=== PATIENT | male | born 1960 | race Caucasian/White ===

== ENCOUNTER → 2017-05-19 07:52 | Outpatient (CLI) | payer BC, SELFPAY ==
[2017-05-19 11:46] LABS: ALB/GLOB Ratio 0.9 RATIO (0.9-2.4); AST(SGOT) 24 U/L (15-37); Alanine Aminotransfer ALT/SGPT 41 U/L (16-61); Albumin, Serum 3.7 g/dL (3.2-5.0); Alkaline Phosphatase 75 U/L (45-117); Anion Gap 10 (5-15); BUN 14 mg/dL (7-18); BUN/Creat Ratio 18.2 RATIO (10-20); Calcium,Total 8.9 mg/dL (8.5-10.1); Chloride 104 mmol/L (98-107); Cholesterol 158 mg/dL (200); Creatinine, Serum 0.77 mg/dL (0.70-1.30); EST Glomerular Filtration Rate 110 mL/min (>60); Est Glom Filt Rate - Afr Amer 134 mL/min (>60); Globulin 3.9 g/dL (2.2-4.2); Glucose 101 mg/dL (70-110); High Density Lipoprotein 46 mg/dL; PSA,Total - Annual Screen 2.47 ng/mL (0.00-4.00); Potassium 3.8 mmol/L (3.5-5.1); Protein, Total 7.6 g/dL (6.4-8.2); Sodium Level 138 mmol/L (136-145); Triglycerides 73 mg/dL; Very Low Density Lipoprotein 15 mg/dL (5-40)
== END ==
PROVIDERS: Family Provider Family Medicine; PCP Family Medicine; Visit Provider Family Medicine
DX: I10 Essential (primary) hypertension (principal); N52.9 Male erectile dysfunction, unspecified; Z12.5 Encounter for screening for malignant neoplasm of prostate
CPT/HCPCS: 36415; 80053; 80061; 84153; G0103

== ENCOUNTER 2017-05-21 22:22 | Emergency (ER) | payer BC, SELFPAY ==
[2017-05-21 22:23] VITALS: BP 202/119; PULSE 110; RESP 20; TEMP 36.8; O2SAT 96; BMI 41.7
--- NOTE | 2017-05-21 22:33 | CT_ITS ---
STUDY: CT ABDOMEN AND PELVIS WITHOUT CONTRAST REASON FOR EXAM: Male, 56 years old. Left flank and lower quadrant pain RADIATION DOSAGE (If Supplied By Facility): CTDIvol = ( 22.04 ) mGy, DLP = ( 1327.05 ) mGycm TECHNIQUE: Transaxial images were obtained from the dome of the diaphragm to the symphysis pubis without oral contrast, and without intravenous contrast. Sagittal and coronal images were reconstructed. Individualized dose optimization techniques were used for this CT. COMPARISON: None. FINDINGS: The visualized lung bases are unremarkable. The visualized portions of the heart are within normal limits. Probable 2.4 cm cyst in the liver. Normal gallbladder and extrahepatic biliary system. Normal spleen. Normal pancreas. Normal bilateral adrenal glands. There are cysts up to 2.5 cm and a 7 mm stone in the right kidney. There are 2 nonobstructing stones up to 4 mm in the left kidney. There is left hydronephrosis with perinephric stranding. Left hydroureter with an obstructive 7 mm stone at the left UVJ. Normal visualized stomach. Normal small intestine. Normal colon. The appendix is visualized and appears normal. Normal abdominal aorta. Normal inferior vena cava. Normal retroperitoneum. Normal urinary bladder. Normal abdominal wall. Degenerative vertebral changes. CT/Abdomen/Pelvis without Cont IMPRESSION: Bilateral renal stones. Right renal cysts. Left hydronephrosis with left hydroureter. There is an obstructive stone at the left UVJ. Probable hepatic cyst. Electronically Signed: Mikie Baldwin DO at 23:31 EST Tel [phone], Service support ,
--- NOTE | 2017-05-21 22:36 | ED.DCSUM_ITS ---
- ER Visit Summary Date of Service: 05/21/17 Chief Complaint: [] Patient presents with abdominal pain left flank started 2 hours ago gradual onset at rest. It is a dull throb deep severe pain. He felt fine before he came on. It happened after eating. He had normal bowel movement today. He has history of kidney stone ?1 with similar pain remotely 1994. No home treatment. Denies any other symptoms. History of Present Illness: The patient is a 56 M see above Physical Examination: Vital signs reviewed. He is having difficulty to get comfortable moving from the bed to standing. General: Well-nourished well-developed Head: Normocephalic atraumatic Eyes: Pupils equal round and reactive to light extraocular movements intact ENT: TMs clear no hemotympanum no trauma Neck: Nontender full range of motion Cardiovascular: Regular rate rhythm no murmurs normal S1-S2 Respiratory: No distress clear to auscultation bilaterally chest nontender Abdomen: Soft nontender nondistended normal bowel sounds no masses Back: Nontender no CVA tenderness Extremities: Nontender active range of motion ?4 extremities no trauma Skin: Normal color no trauma Neuro alert oriented cranial nerves II through XII intact normal strength sensation reflexes Test Results: [] Emergency Department Course and Treatment: [] Patient given IV fluids Toradol and fentanyl. Lab work and CT obtained. He shows a 7 mm left UVJ kidney stone with hydroureter. Bilateral renal stones and cysts noted. CBC chemistry normal except BUN 19. Urinalysis just shows microscopic blood. Patient will be discharged with a short course of pain pills and will follow up with urology. Understands she is unlikely to pass this. I did offer him admission is pain-free and would like to follow-up. I think this is reasonable. Treatment Plan: [] Disposition: [] Impression: [] Left-sided renal stone with hydronephrosis 7 mm This note was generated with [employer] dictation software. It may contain incorrect words, spelling, and punctuation that were not noted in review of the chart prior to signing ED Disposition - Plan for ED Patient: Chief Complaint: Abd Pain Referrals: Atif Nolan MD [Primary Care Provider] -
[2017-05-21 22:46] LABS: Absolute Lymphocyte Count 2.23 X10^3/ul (0.83-4.51); Basophil# 0.04 X10^3/uL; Basophil% 0.4 % (0-1); Eosinophils% 3.3 % (0-5); Hematocrit 48.6 % (40-54); Hemoglobin 16.2 g/dl (13.0-16.5); Lymphocyte # 2.23 X10^3/ul (4.0); Lymphocyte % 24.3 % (19-41); Mean Corp Hgb Conc 33.3 g/gl (32-36); Mean Corpuscular Hgb 32.3 pg (27.0-32.0); Mean Corpuscular Volume 96.8 fL (80-94); Mean Platelet Vol. 8.4 fl (6.2-12.0); Monocyte# 0.62 X10^3/uL; Monocyte% 6.7 % (0-10); Neutrophil # 5.97 X10^3/uL (2.7-7.7); Platelet Count 215 K/mm3 (150-450); RBC Distribution Width CV 13.1 % (11.6-14.6); RBC Distribution Width SD 46.2 fl (35.1-43.9); Red Blood Count 5.02 M/mm3 (4.6-6.2); White Blood Count 9.2 K/mm3 (4.4-11.0)
[2017-05-21 22:48] LABS: POSITIVE COUNT NO; POSITIVE DIFFERENTIAL NO; POSITIVE MORPHOLOGY NO
[2017-05-21] MEDS: fentaNYL 100 MCG/2 ML Ampul IV (22:54)
[2017-05-21] MEDS: 0.9% Normal Saline 1,000 ML 250 ML IV (22:54)
[2017-05-21] MEDS: Ketorolac 30 MG/ML Syringe IV (22:54)
[2017-05-21 23:03] LABS: Anion Gap 10 (5-15); BUN 19 mg/dL (7-18); BUN/Creat Ratio 17.4 RATIO (10-20); Calcium,Total 8.8 mg/dL (8.5-10.1); Chloride 107 mmol/L (98-107); Creatinine, Serum 1.09 mg/dL (0.70-1.30); EST Glomerular Filtration Rate 74 mL/min (>60); Est Glom Filt Rate - Afr Amer 89 mL/min (>60); Estimated Creatinine Clearance 73.87 ml/min; Glucose 131 mg/dL (70-110); Potassium 3.8 mmol/L (3.5-5.1); Sodium Level 143 mmol/L (136-145)
[2017-05-21 23:16] LABS: Bacteria 0 SEEN /hpf (None Seen); Mucous, Urine 0 SEEN /hpf (<or=2+); White Blood Cells 0 SEEN /hpf (0-5)
[2017-05-21 23:18] LABS: Color, Urine Yellow (Yellow); Glucose, Dipstick Normal (Normal); Ketone-Dipstick Negative (Negative); Leukocyte Esterase-Dipstick 25 /ul (Negative); Nitrite-Dipstick Negative (Negative); Occult Blood-Urine 250 /ul (Negative); Protein-Dipstick 15 mg/dl (Negative); Specific Gravity, Urine 1.025 (1.002-1.030); Urine Bilirubin Dipstick Negative (Negative); Urine Clarity Sl. Cloudy (Clear); Urine Urobilinogen 1 mg/dl (Normal)
[2017-05-21 23:26] LABS: Red Blood Cells-Urine 25-50 SEEN /hpf (0-5); Squamous Epithelial Cells - UA 0-5 SEEN /hpf (0-5)
--- NOTE | 2017-05-21 23:44 | ED.DEP ---
ED Disposition - Plan for ED Patient: Disposition: Home or Assisted Living Chief Complaint: Abd Pain Instructions: Treating Kidney Stones: Medications Prescriptions: Oxycodone HCl/Acetaminophen [Percocet 5/325] 2 tab PO Q6H PRN PRN 3 Days #12 tab PRN Reason: Pain Ondansetron [Zofran Odt] 4 mg PO Q8H PRN PRN #10 tab PRN Reason: Nausea Referrals: Atif Nolan MD [Primary Care Provider] - Elias Collins MD [STAFF PHYSICIAN] -
[2017-05-21] MEDS: HYDROcodone Bitartrate/Apap 5/325 Tablet PO (23:55)
[2017-05-21 23:58] VITALS: BP 152/104; PULSE 93; O2SAT 97
== END 2017-05-22 00:01 | disposition home or self-care (01) ==
PROVIDERS: Emergency Provider Emergency Medicine; Family Provider Family Medicine; PCP Family Medicine
DX: N13.2 Hydronephrosis with renal and ureteral calculous obstruction (principal); N28.1 Cyst of kidney, acquired; E66.9 Obesity, unspecified; Z87.442 Personal history of urinary calculi; Z79.899 Other long term (current) drug therapy
CPT/HCPCS: 74176; 80048; 81001; 85025; 96361; 96374; 96375; 99284; A4216

== ENCOUNTER 2017-05-30 13:31 | Day surgery (SDC) | payer BC, SELFPAY ==
[2017-05-21 23:58] VITALS: BP 152/104
--- NOTE | 2017-05-30 12:45 | RAD_ITS ---
STUDY: X-RAY - ABDOMEN/PELVIS REASON FOR EXAM: Male, 56 years old. Bilateral renal calculi. TECHNIQUE: Two AP supine views of the abdomen and pelvis. COMPARISON: None. FINDINGS: There is a moderate amount of colonic fecal material. 2 small calcifications are seen overlying the mid and lower pole of the left kidney. It is also evidence of a 3.3 mm calcification overlying the transverse processes of the L4 vertebrae on the left side. Phleboliths are seen in the left hemipelvis. Normal soft tissue structures. There are diffuse degenerative changes of the visualized lumbar spine. RAD/Abdomen Single View IMPRESSION: Findings in keeping with a small left intrarenal calculi. I suspect a 3.3 mm calculus in the midportion of the left ureter. Phleboliths are seen in the left hemipelvis. Electronically Signed: Jovon Christie MD at 13:44 EST Tel [phone], Service support ,
[2017-05-30 13:45] VITALS: BMI 40.0
[2017-05-30 13:56] VITALS: BP 140/96; PULSE 99; RESP 16; TEMP 36.9; O2SAT 96
[2017-05-30] MEDS: Cefazolin 2 GM in 0.9% Normal Saline 100 ML IV (15:51)
--- NOTE | 2017-05-30 16:34 | PCM.DC.URO ---
Discharge Diet: Light diet - advance as tolerated Discharge Activity: Return to Normal Activity, May not drive while taking narcotic pain medications. Call your doctor if your incision/area has: Continuous Slow Oozing, Sudden Increased Bleeding Instructions: Shock Wave Lithotripsy Allergies/Adverse Reactions: Allergies Penicillins Allergy (Verified 05/27/17 14:56) Other Medications to take at Discharge Lisinopril [Zestril] 1 tab PO DAILY 05/21/17 Multivitamin [Multiple Vitamins] 1 each PO DAILY 05/21/17 Ondansetron [Zofran Odt] 4 mg PO Q8H PRN PRN #10 tab 05/21/17 Antiarthritic Combination No.2 [Glucosamine-Chondroitin] 900 mg PO DAILY 05/27/17 Cholecalciferol (Vitamin D3) [Vitamin D3] 5,000 unit PO DAILY 05/27/17 Oxycodone HCl/Acetaminophen [Percocet 5/325] 1 tablet PO Q6H PRN PRN 05/27/17 Vit A/Vit C/Vit E/Zinc/Copper [Preservision Areds Softgel] 1 each PO DAILY 05/27/17 Primary Care Physician: Atif Nolan MD [Primary Care Provider] - Please Follow Up With: Elias Collins MD When: please call to make an appointment.
--- NOTE | 2017-05-30 16:43 | PCM.OPRPT ---
Problem List (1) Left ureteral calculus Status: Acute Report of Operation Date of Procedure: 05/30/17 Pre-Operative Diagnosis: Left ureteral calculi Post-Operative Diagnosis: Same Surgery/Procedure Performed:: Cystoscopy left ureteral catheter placement, le extracorporeal shockwave lithotripsyft. Description of Surgical Findings:: 56-year-old male was taken back to the operating room after smooth induction of anesthesia he was placed supine on the table we first looked at the right kidney with fluoroscopy and on CAT scan he had a small stone but we could not find a stone under fluoroscopy to safely treated that we let looked at the left kidney again some small stones on CAT scan but nothing that we could see under fluoroscopy to treat safely. We then moved to the distal left ureter identified a stone in the distal left ureter in the pelvis. Question about which stone in the pelvis was the actual stone so we did a cystoscopy placed a wire up the left ureter and a Pollack catheter and then identified a stone in the distal left ureter. I left the wire in place and then we treated the stone in the distal left ureter with 3000 shockwaves of shockwave lithotripsy. At the end of the treatment cycle the stone I definitely broke up a little tiny pieces and drained the bladder patient anesthetic was reversed and is taken back to the PACU in good condition. Type of Anesthesia:: General Drains: none - Admit VTE Documentation VTE Present on Admission: No VTE Mechan Device Prophylaxis: SCD's VTE Pharm Prophylaxis ordered?: No Reason prophylaxis not ordered:: Treatment Not Indicated
[2017-05-30 17:11] VITALS: BP 133/96; BP 140/96; PULSE 84; RESP 18; TEMP 36.1; O2SAT 97
[2017-05-30 17:15] VITALS: BP 135/94; BP 140/96; PULSE 81; RESP 18; O2SAT 98
[2017-05-30 17:30] VITALS: BP 114/76; BP 140/96; PULSE 72; RESP 18; TEMP 36.4; O2SAT 99
[2017-05-30 17:55] VITALS: BP 140/96
[2017-05-30 18:01] VITALS: BP 140/96
== END 2017-05-30 18:30 | disposition home or self-care (01) ==
LOC: SDC 13:31 → AC 13:32
PROVIDERS: Family Provider Family Medicine; PCP Family Medicine; Visit Provider Urology
PROC: (CPT 50590; principal; 2017-05-30 15:05)
DX: N20.1 Calculus of ureter (principal); N20.0 Calculus of kidney; I10 Essential (primary) hypertension; E66.9 Obesity, unspecified; Z68.39 Body mass index [BMI] 39.0-39.9, adult; Z87.442 Personal history of urinary calculi; Z79.891 Long term (current) use of opiate analgesic; Z79.899 Other long term (current) drug therapy
CPT/HCPCS: 50590; 74018; J7120; C1769; J2405

== ENCOUNTER → 2017-06-16 10:08 | Outpatient (CLI) | payer BC, SELFPAY ==
--- NOTE | 2017-06-16 10:12 | RAD_ITS ---
STUDY: X-RAY - ABDOMEN/PELVIS REASON FOR EXAM: Male, 56 years old. Abdominal pain. TECHNIQUE: Single AP view of the abdomen / pelvis. COMPARISON: CT scan 05/21/2018, KUB 05/30/2017. FINDINGS: Stable probable 3 mm stone in the lower pole of the left kidney. No other definite renal or ureteral stones on either side. There is an unremarkable bowel gas pattern. There is no demonstrated free abdominal air. The visualized liver, spleen and kidneys are grossly normal in size and morphology. Normal soft tissue structures. There are diffuse degenerative changes of the visualized lumbar spine. RAD/Abdomen Single View IMPRESSION: Stable probable 3 mm stone in the lower pole of the left kidney. Electronically Signed: Aj Epperson MD at 17:10 EST , Service support ,
== END ==
LOC: RAD.FUTURE 10:09 → RAD 10:10
PROVIDERS: Family Provider Family Medicine; PCP Family Medicine; Visit Provider Urology
DX: N20.0 Calculus of kidney (principal)
CPT/HCPCS: 74018

== ENCOUNTER 2017-08-11 06:00 | Day surgery (SDC) | payer BC, SELFPAY ==
[2017-08-11 06:20] VITALS: BP 133/103; PULSE 87; RESP 18; TEMP 36.9; O2SAT 98; BMI 39.9
--- NOTE | 2017-08-11 07:21 | PCM.HP.STD ---
Problem List (1) Colon cancer screening Status: Acute History of Present Illness Date of Admission: 08/11/17 The patient is a 56 year old M who presents for screening colonoscopy Past Medical History Allergies Penicillins Allergy (Verified 05/27/17 14:56) Other Home Medications: Ambulatory Orders Medication Instructions Recorded Lisinopril [Zestril] 1 tab PO DAILY 05/21/17 Multivitamin [Multiple Vitamins] 1 each PO DAILY 05/21/17 Antiarthritic Combination No.2 900 mg PO DAILY 05/27/17 [Glucosamine-Chondroitin] Cholecalciferol (Vitamin D3) 5,000 unit PO DAILY 05/27/17 [Vitamin D3] Smoking Status: Never smoker Review of Systems Cardiovascular: Denies: Chest Pain, Chest Pressure, Chest Tightness, Palpitations Respiratory: Denies: Cough, Hemoptysis, Shortness of breath at rest, Shortness of breath upon exertion, Wheezing Gastrointestinal: Denies: Abdominal Pain, Constipation, Diarrhea, Hematemesis, Nausea, Melena, Vomiting VTE Information - Inpt Only VTE Present on Admission: No VTE Mechan Device Prophylaxis: None VTE Pharm Prophylaxis ordered?: No Reason prophylaxis not ordered:: Treatment Not Indicated Patient Problems: Active and Suspected Problems Colon cancer screening (Acute) - Physical Exam Lungs: Clear to auscultation Cardiovascular: Regular rate, Regular Rhythm, No murmurs Abdomen: Bowel Sounds Present, Soft, Non Tender, Non-Distended Vital Signs Temp Pulse Resp BP Pulse Ox 98.4 F 87 18 133/103 H 98 08/11/17 06:20 08/11/17 06:20 08/11/17 06:20 08/11/17 06:20 08/11/17 06:20 Oxygen Delivery Method Room Air Weight: 278 lb Body Mass Index (BMI) 39.9 Assessment/Plan Active and Suspected Problems Colon cancer screening (Acute) Plan will be to perform a colonoscopy
--- NOTE | 2017-08-11 07:23 | PCM.OPRPT ---
Problem List (1) Colon cancer screening Status: Acute Report of Operation Date of Procedure: 08/11/17 Pre-Operative Diagnosis: z12.11 screening colonoscopy Post-Operative Diagnosis: Same Surgery/Procedure Performed:: [id number] colonoscopy Type of Anesthesia:: MAC Anesthesiologist: Kenneth Mohr Description of Procedure: Patient was brought into the endoscopy suite. Placed in the left lateral decubitus position. Given graded anesthesia. Scope was inserted into the rectum and directed through the sigmoid colon, descending colon, transverse colon, ascending colon, to the cecum. Operative findings: 1. Cecum: Normal appearance no mass lesions normal ileocecal valve. 2. Ascending colon: Normal appearance no mass lesions 3. Transverse colon: Normal appearance no mass lesions. 4. Descending colon: Normal appearance no mass lesions. 5. Sigmoid colon: Normal appearance no mass lesions. 6. Rectum: Normal appearance no mass lesions retroflexion did not show any significant internal hemorrhoidal disease. The scope was withdrawn digital rectal exam was performed showing a smooth prostate with no nodules. The patient will need another colonoscopy in 10 years. - Admit VTE Documentation VTE Present on Admission: No VTE Mechan Device Prophylaxis: None VTE Pharm Prophylaxis ordered?: No Reason prophylaxis not ordered:: Treatment Not Indicated
[2017-08-11 07:25] VITALS: BP 109/76; BP 133/103; PULSE 88; RESP 18; TEMP 36.4; O2SAT 97
[2017-08-11 07:30] VITALS: BP 118/82; BP 133/103; PULSE 86; RESP 18; O2SAT 98
[2017-08-11 07:35] VITALS: BP 122/92; BP 133/103; PULSE 89; RESP 18; O2SAT 98
[2017-08-11 07:41] VITALS: BP 120/83; BP 133/103; PULSE 78; RESP 18; TEMP 36.4; O2SAT 100
[2017-08-11 08:33] VITALS: BP 133/103
== END 2017-08-11 08:34 | disposition home or self-care (01) ==
LOC: EN 06:00 → AC 06:01
PROVIDERS: Family Provider Family Medicine; PCP Family Medicine; Visit Provider Surgery
PROC: 0DJD8ZZ Inspection of Lower Intestinal Tract, Via Natural or Artificial Opening Endoscopic (ICD-10-PCS; CPT 45378; principal; 2017-08-11 06:55)
DX: Z12.11 Encounter for screening for malignant neoplasm of colon (principal); I10 Essential (primary) hypertension; Z79.899 Other long term (current) drug therapy
CPT/HCPCS: 45378; J7120

== ENCOUNTER → 2017-08-19 09:32 | Outpatient (CLI) | payer BC, SELFPAY ==
--- NOTE | 2017-08-19 09:36 | RAD_ITS ---
STUDY: X-RAY - LEFT KNEE REASON FOR EXAM: Male, 56 years old. Arthritis TECHNIQUE: 4 view(s) of the knee. COMPARISON: None. FINDINGS: There is no evidence of fracture or dislocation. There are severe degenerative changes in the medial compartment with loss of joint space. There are mild degenerative changes in the lateral compartment and patellofemoral compartment. There are no radiodense foreign bodies. RAD/Knee 4 or More Views IMPRESSION: No fracture or dislocation. Severe degenerative changes in the medial compartment. Electronically Signed: Adal Marks, at 17:01 EDT Tel , Service support ,
--- NOTE | 2017-08-19 09:36 | RAD_ITS ---
STUDY: X-RAY - RIGHT KNEE REASON FOR EXAM: Male, 56 years old. Arthritis TECHNIQUE: 4 view(s) of the knee. COMPARISON: None. FINDINGS: There is no evidence of fracture or dislocation. There are severe degenerative changes in the medial compartment with loss of joint space. There are mild degenerative changes in the lateral compartment and patellofemoral compartment. There are no radiodense foreign bodies. RAD/Knee 4 or More Views IMPRESSION: No fracture or dislocation. Severe degenerative changes in the medial compartment. Electronically Signed: Adal Marks, at 16:59 EDT Tel , Service support ,
== END ==
PROVIDERS: Family Provider Family Medicine; PCP Family Medicine; Visit Provider Family Medicine
DX: M17.10 Unilateral primary osteoarthritis, unspecified knee (principal)
CPT/HCPCS: 73564

== ENCOUNTER → 2018-10-16 | Outpatient (CLI) | payer BC, SELFPAY ==
[2018-10-06 06:24] VITALS: BMI 40.0
[2018-10-16 10:12] LABS: Color, Urine Yellow (Yellow); Glucose, Dipstick Normal (Normal); Ketone-Dipstick Negative (Negative); Leukocyte Esterase-Dipstick Negative /ul (Negative); Nitrite-Dipstick Negative (Negative); Occult Blood-Urine Negative /ul (Negative); Protein-Dipstick Negative (Negative); Urine Bilirubin Dipstick Negative (Negative); Urine Clarity Clear (Clear); Urine Urobilinogen Normal (Normal)
[2018-10-16 10:38] LABS: ALB/GLOB Ratio 0.9 RATIO (0.9-2.4); AST(SGOT) 21 U/L (15-37); Alanine Aminotransfer ALT/SGPT 40 U/L (16-61); Albumin, Serum 3.6 g/dL (3.2-5.0); Alkaline Phosphatase 92 U/L (45-117); Anion Gap 9 (5-15); BUN 20 mg/dL (7-18); BUN/Creat Ratio 22.8 RATIO (10-20); Calcium,Total 8.8 mg/dL (8.5-10.1); Chloride 105 mmol/L (98-107); Cholesterol 185 mg/dL (200); Creatinine, Serum 0.88 mg/dL (0.70-1.30); EST Glomerular Filtration Rate 94 mL/min (>60); Est Glom Filt Rate - Afr Amer 114 mL/min (>60); Globulin 3.8 g/dL (2.2-4.2); Glucose 110 mg/dL (74-106); High Density Lipoprotein 55 mg/dL; PSA,Total - Annual Screen 3.48 ng/mL (0.00-4.00); Potassium 4.2 mmol/L (3.5-5.1); Protein, Total 7.4 g/dL (6.4-8.2); Sodium Level 141 mmol/L (136-145); Triglycerides 77 mg/dL; Very Low Density Lipoprotein 15 mg/dL (5-40)
[2018-10-16 10:50] LABS: Microalbumin,Random Urine 7.1 mg/L (NO RANGE EST.); Microalbumin:Creatinine Ratio 5.8 mg/g CRE (<30 mg/g CRE)
== END | disposition home or self-care (01) ==
LOC: LAB.FUTURE 08:26
PROVIDERS: Family Provider Family Medicine; PCP Family Medicine; Referring Provider Family Medicine; Visit Provider Family Medicine
DX: Z00.00 Encounter for general adult medical examination without abnormal findings (principal); Z12.5 Encounter for screening for malignant neoplasm of prostate
CPT/HCPCS: 36415; 80053; 80061; 81002; 82043; 82570; 84153; G0103

== ENCOUNTER → 2019-10-07 | Outpatient (CLI) | payer OTHER, SELFPAY ==
[2018-10-06 06:24] VITALS: BMI 40.0
[2019-10-07 13:28] LABS: ALB/GLOB Ratio 0.9 RATIO (0.9-2.4); AST(SGOT) 24 U/L (15-37); Alanine Aminotransfer ALT/SGPT 33 U/L (16-61); Albumin, Serum 3.6 g/dL (3.2-5.0); Alkaline Phosphatase 85 U/L (45-117); Anion Gap 8 (5-15); BUN 18 mg/dL (7-18); BUN/Creat Ratio 23.6 RATIO (10-20); Calcium,Total 9.1 mg/dL (8.5-10.1); Chloride 109 mmol/L (98-107); Cholesterol 170 mg/dL (200); Creatinine, Serum 0.76 mg/dL (0.70-1.30); EST Glomerular Filtration Rate 111 mL/min (>60); Est Glom Filt Rate - Afr Amer 134 mL/min (>60); Globulin 3.8 g/dL (2.2-4.2); Glucose 119 mg/dL (74-106); High Density Lipoprotein 59 mg/dL; PSA,Total - Annual Screen 2.11 ng/mL (0.00-4.00); Potassium 3.9 mmol/L (3.5-5.1); Protein, Total 7.4 g/dL (6.4-8.2); Sodium Level 141 mmol/L (136-145); Triglycerides 61 mg/dL; Very Low Density Lipoprotein 12 mg/dL (5-40)
== END | disposition home or self-care (01) ==
LOC: MFPLAB 09:58
PROVIDERS: PCP Family Medicine; Referring Provider Family Medicine; Visit Provider Family Medicine
DX: I10 Essential (primary) hypertension (principal); Z12.5 Encounter for screening for malignant neoplasm of prostate
CPT/HCPCS: 36415; 80053; 80061; 84153; G0103

== ENCOUNTER → 2020-10-16 14:49 | Outpatient (CLI) | payer OTHER, SELFPAY ==
[2018-10-06 06:24] VITALS: BMI 40.0
[2020-10-16 18:35] LABS: Anion Gap 9 (5-15); BUN 13 mg/dL (7-18); BUN/Creat Ratio 17.6 RATIO (10-20); Calcium,Total 9.3 mg/dL (8.5-10.1); Chloride 105 mmol/L (98-107); Creatinine, Serum 0.74 mg/dL (0.70-1.30); EST Glomerular Filtration Rate 114 mL/min (>60); Est Glom Filt Rate - Afr Amer 138 mL/min (>60); Glucose 85 mg/dL (74-106); Potassium 4.1 mmol/L (3.5-5.1); Sodium Level 138 mmol/L (136-145)
== END ==
PROVIDERS: PCP Family Medicine; Referring Provider Family Medicine; Visit Provider Family Medicine
DX: I10 Essential (primary) hypertension (principal)
CPT/HCPCS: 36415; 80048

== ENCOUNTER → 2021-11-21 | Outpatient (CLI) | payer OTHER, SELFPAY ==
[2021-11-21 10:23] LABS: AST(SGOT) 26 U/L (15-37); Alanine Aminotransfer ALT/SGPT 38 U/L (16-61); Albumin, Serum 3.5 g/dL (3.2-5.0); Alkaline Phosphatase 93 U/L (45-117); Anion Gap 4 (5-15); BUN 14 mg/dL (7-18); BUN/Creat Ratio 19.4 RATIO (10-20); Calcium,Total 9.1 mg/dL (8.5-10.1); Chloride 111 mmol/L (98-107); Cholesterol 160 mg/dL (200); Creatinine, Serum 0.72 mg/dL (0.70-1.30); EST Glomerular Filtration Rate 117 mL/min (>60); Est Glom Filt Rate - Afr Amer 141 mL/min (>60); Globulin 3.6 g/dL (2.2-4.2); Glucose 113 mg/dL (74-106); High Density Lipoprotein 48 mg/dL; PSA,Total - Annual Screen 3.01 ng/mL (0.00-4.00); Potassium 3.8 mmol/L (3.5-5.1); Protein, Total 7.1 g/dL (6.4-8.2); Sodium Level 140 mmol/L (136-145); Triglycerides 69 mg/dL; Very Low Density Lipoprotein 14 mg/dL (5-40)
== END | disposition home or self-care (01) ==
LOC: MTLAB 07:36
PROVIDERS: PCP Family Medicine; Referring Provider Family Medicine; Visit Provider Family Medicine
DX: Z00.00 Encounter for general adult medical examination without abnormal findings (principal); Z12.5 Encounter for screening for malignant neoplasm of prostate
CPT/HCPCS: 36415; 80053; 80061; 84153; G0103

== ENCOUNTER → 2022-12-11 | Outpatient (CLI) | payer OTHER, SELFPAY ==
[2022-12-11 10:55] LABS: AST(SGOT) 25 U/L (15-37); Alanine Aminotransfer ALT/SGPT 37 U/L (16-61); Albumin, Serum 3.7 g/dL (3.2-5.0); Alkaline Phosphatase 105 U/L (45-117); Anion Gap 3 (5-15); BUN 18 mg/dL (7-18); BUN/Creat Ratio 21.3 RATIO (10-20); Calcium,Total 9.2 mg/dL (8.5-10.1); Chloride 108 mmol/L (98-107); Cholesterol 162 mg/dL (200); Creatinine, Serum 0.84 mg/dL (0.70-1.30); EST Glomerular Filtration Rate 97 mL/min (>60); Est Glom Filt Rate - Afr Amer 117 mL/min (>60); Globulin 3.6 g/dL (2.2-4.2); Glucose 123 mg/dL (74-106); High Density Lipoprotein 50 mg/dL; PSA,Total - Annual Screen 2.32 ng/mL (0.00-4.00); Potassium 4.4 mmol/L (3.5-5.1); Protein, Total 7.3 g/dL (6.4-8.2); Sodium Level 141 mmol/L (136-145); Triglycerides 71 mg/dL; Very Low Density Lipoprotein 14 mg/dL (5-40)
[2022-12-11 11:02] LABS: Hemoglobin A1c 5.7 % (3.8-5.6)
== END | disposition home or self-care (01) ==
LOC: MFPLAB 09:32
PROVIDERS: PCP Family Medicine; Visit Provider Family Medicine
DX: F10.99 Alcohol use, unspecified with unspecified alcohol-induced disorder (principal); Z12.5 Encounter for screening for malignant neoplasm of prostate; Z13.220 Encounter for screening for lipoid disorders; R73.01 Impaired fasting glucose
CPT/HCPCS: 36415; 80053; 80061; 83036; 84153; G0103

== ENCOUNTER → 2023-05-19 | Outpatient (CLI) | payer OTHER, SELFPAY ==
--- NOTE | 2023-05-19 14:27 | RAD_ITS ---
INDICATION: ongoing persistent cough. EXAMINATION/TECHNIQUE: X-RAY - XR Chest 2 Views COMPARISON: FINDINGS: LINES/DEVICES: None. LUNGS: No consolidation, edema or effusion. No pneumothorax. MEDIASTINUM AND CARDIOVASCULAR STRUCTURES: Cardiac silhouette not enlarged. Central airways and mediastinal contour are unremarkable. BONES AND SOFT TISSUES: Unremarkable. RAD/Chest PA and Lateral IMPRESSION: No radiographic evidence of acute cardiopulmonary disease. Electronically Signed: Mikie Baldwin DO at 16:53 EST Reading Location ID and State: [facility] / [place] Tel [phone], Service support ,
--- OUTSIDE RECORDS SUMMARY | 2023-05-19 14:42 | XMS RPT_ITS | CCD ---
Author Name Unknown Address [address] [facility] [address] [place] [address] Organization [facility] Care Team Providers Care Optical Goods Worker Name Role Phone Unavailable Primary Care Provider Unavailabl e Results Test Name Value Interpretation Reference Range Facil ity Encounters Encounter Date Encounter Type Care Provider Facility Start: 10-21-2019 End: 10-21-2019 Subsequent hospital visit by physician Toño Bravo Work Phone: [facility] CT SCAN Procedures Date Procedure Procedure Detail Performing Clinician Start: 10-21-2019 End: 10-21-2019 Ct lower extremity w/o contrast material Toño Bravo Work Phone: Plan of Treatment Date Care Activity Detail Author Start: 12-21-2019 Influenza vaccination Flu vaccine (# 1) [place], [place] Start: 2008 Screening for malign ant neoplasm of colon Colon cancer screen colonoscopy [place], [place] Start: 2008 Shingles Vaccine (1 of 2) Shingles Vaccine (1 of 2) [place] Start: 1998 Lipid panel Lipid screen [place], [place] Start: 1977 DTaP/Tdap/Td vaccine (1 - Tdap) DTaP/Tdap/Td vaccine (1 - Tdap) [place] Start: 1973 HIV screening HIV screen [place], [place] Start: 1958 Hepatitis C screening Hepatitis C sc reen [place] Social History Date Type Detail Facility Tobacco smoking status NHIS Unknown if ev er smoked [place] Sex Assigned At Not on file [place] Advance Directives No Advanced Directives Records FoundDocuments on File Type Date 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 This clinical summary was aggregated from multiple sources. Caution should be exercised in using it in the provision of clinical care. This summary normalizes information from multiple sources, and as a consequence, information in this document may materially change the coding, format and clinical context of patient data. In addition, data may be omitted in some cases. CLINICAL DECISIONS SHOULD BE BASED ON THE PRIMARY CLINICAL RECORDS. [facility] [employer] [facility]. provides no warranty or guarantee of the accuracy or completeness of information in this document.
== END | disposition home or self-care (01) ==
LOC: MTRAD 14:26
PROVIDERS: PCP Family Medicine; Referring Provider Nurse Practitioner Family; Visit Provider Nurse Practitioner Family
DX: R05.9 Cough, unspecified (principal)
CPT/HCPCS: 71046

== ENCOUNTER 2023-11-10 22:18 | Emergency (ER) | payer OTHER, SELFPAY ==
[2023-11-10 22:19] VITALS: BP 131/80; PULSE 101; RESP 18; TEMP 36.1; O2SAT 96; BMI 41.0
--- NOTE | 2023-11-10 22:30 | RAD_ITS ---
INDICATION: Right shoulder pain, no known injury EXAMINATION/TECHNIQUE: X-RAY - RIGHT XR Shoulder Min 2 Views 4 VIEWS COMPARISON: None. FINDINGS: SOFT TISSUES: No soft tissue swelling or gas. No radiopaque foreign body. BONES/JOINTS: No acute fracture. Joint spaces anatomically aligned with degenerative changes at the glenohumeral joint. No sclerotic or destructive changes observed. RAD/Shoulder min 2 Views IMPRESSION: Degenerative changes without acute bony abnormality. Electronically Signed: Attila Arauz MD at 23:01 EDT ,
--- NOTE | 2023-11-10 22:32 | EDS_ITS ---
HPI History of Present Illness HPI Narrative: Atraumatic right shoulder pain. Denies any fall injury. Denies any fever or redness. No prior shoulder surgery. He did have clavicle fracture as a child. Chief Complaint: Upper Extremity Injury Informant: patient Occured/Mechanism Mechanism/Context: No injury and No blunt trauma Onset/Context/Timing Onset: Today and Yesterday Context: Gradual Onset Timing: Continuous Quality of Pain: Dull and Aching Current Severity: Moderate Maximum Severity: Moderate Associated Symptoms Associated Symptoms: Negative for Parasthesia, Weakness or Loss of Funtion Narrative Narrative: 63-year-old [id number] male. He has had bilateral knee replacements. Patient had intermittent chronic shoulder pain for years. Worse over the last couple months. He thinks he slept on it the last couple days and has had increased pain in his shoulder and pain with range of motion. Denies any fall injury or trauma. No redness or warmth. No fever. He is never had any shoulder surgery. He has had steroid injections in his knees before in his arms but never in his shoulder. Prior similar symptoms: Yes Recent Illness/Hospitalization: No PFSH PFSH Home Medications ?Medication ?Instructions ?Recorded ?Last Taken ?Type lisinopril 10 mg tablet 1 tab PO DAILY 05/21/17 Unknown History multivitamin (Multiple Vitamins 1 ea PO DAILY 05/21/17 Unknown History tablet) antiarthritic combination no.2 900 900 mg PO DAILY 05/27/17 Unknown History mg tablet (glucosamine-chondroitin) cholecalciferol (vitamin D3) 125 5,000 unit PO DAILY 05/27/17 Unknown History mcg (5,000 unit) capsule losartan 50 mg tablet 50 mg PO DAILY 11/10/23 Unknown History tamsulosin 0.4 mg capsule 0.4 mg PO QHS 11/10/23 Unknown History Allergy/AdvReac Type Severity Reaction Status Date / Time Penicillins Allergy Other Verified 11/10/23 22:19 Social History Smoking Status: Never smoker ROS ROS ED ROS Narrative Atraumatic right shoulder pain. No recent illness. Review of Systems ROS Unobtainable: Denies due to encephalopathy Constitutional Constitutional ED: Denies chills or fever(s) Eyes Eyes: Denies blurry vision ENT ENT ED: Denies ear pain Cardiovascular Cardiovascular: Denies chest pain Respiratory/Chest Respiratory/Chest: Denies cough or dyspnea Gastrointestinal Gastrointestinal: Denies abdominal pain Genitourinary Genitourinary ED: Denies dysuria or hematuria Musculoskeletal Musculoskeletal: Denies back pain or myalgias Integumentary Denies abscess Neurologic Neurologic: Denies headache(s) Psychiatric Psychiatric: Denies anxiety or depression Endocrine Endocrinology: Denies cold intolerance Hematologic/Lymphatic Hematologic/Lymphatic: Denies easy bleeding Allergic/Immunologic Allergic/Immunologic ED: Denies mouth swelling EXAM Physical Exam Narrative Exam Narrative: Well-appearing 63-year-old male. Vital signs stable afebrile. H EENT exam unremarkable. Neck nontender. Lungs clear to auscultation. Heart regular rhythm rate about 100 no murmur. Chest wall and ribs nontender. Abdomen soft nontender. Moving all 4 extremities. Neurovascular intact. 5-5 student education specialist strength. Dorsi plantarflexion intact. Specifically right shoulder mild tenderness. No swelling. No redness or warmth. No signs of septic joint. He can do range of motion it is more uncomfortable when he does range of motion. He can lift his arm over his head but it takes him a while his rotator cuff appears to be intact. The bicep and tricep are intact. The elbow, forearm, wrist and hand are nontender. No swelling. Normal radial pulse. Normal 5 out of 5 student education specialist strength Const Vital Signs: 11/10/23 22:19 Temperature 97 F L Temperature Source Temporal Pulse Rate 101 H Respiratory Rate 18 Blood Pressure 131/80 H Blood Pressure Mean 97 Pulse Ox 96 Oxygen Delivery Method Room Air Positive well nourished and well developed; Negative for cachectic, contractures or unkempt General Appearance ED: well developed and NAD; Negative for unkempt, cachectic, contractures, cyanotic or diaphoretic Nutritional Appearance: Negative for cachectic HEENT Reports moist mucous membranes normocephalic and atraumatic; Negative for trauma or tenderness Eyes PERRL and EOMs intact bilaterally General Eye ED: Negative for other Neck full ROM and supple General: Negative for tenderness Chest Wall inspection of chest normal and palpation of chest normal Chest: Negative for other Resp normal respiratory effort and clear to auscultation bilaterally Effort and Inspection: Negative for pain with movement Auscultation: Negative for rales, rhonchi, wheezes or diminished lung sounds Cardio regular rate, regular rhythm, S1 normal heart sound, S2 normal heart sound and no murmurs Rate: Negative for bradycardia or tachycardic Rhythm: Negative for abnormal rhythm GI non-tender, non-distended and no masses Inspection: Negative for abdominal distention Auscultation: normoactive bowel sounds Palpation: soft; Negative for tender, guarding or rebound tenderness present Back/Spine no CVA tenderness General Back: Negative for CVA tenderness Cervical Spine: Negative for cervical spine tenderness Thoracic Spine / Upper Back: Negative for thoracic spinal tenderness Lumbar Spine / Lower Back: Negative for lumbar spinal tenderness Extremity full ROM; Negative for normal to inspection Extremity Narrative: Right shoulder minimally tender. No redness or warmth. No signs of septic joint. No cellulitis. He can do range of motion but it takes him some time to get his arm over his head due to discomfort. There is no gross bony deformity. There is no dislocation. There is no axillary lymphadenopathy. The elbow, forearm, wrist and hand are nontender. Normal range of motion. Normal radial pulse. 5 of 5 student education specialist strength. Normal sensation. General Extremety ED: Negative for edema General Extremity: Negative for edema Neuro oriented x3, CN's II-XII intact bilaterally, moves all extremities, no focal motor deficits and no sensory deficits noted Sensorium / Orientation: alert, oriented to person, oriented to place and oriented to time; Negative for orientation impaired or lethargic Motor Exam: strength 5/5 throughout Psych mental status grossly normal Appearance: Negative for unkempt Attitude: No agitated Mood & Affect: Negative for depressed Skin General Skin Exam: Negative for petechiae Lesions: no lesions Rashes: no rashes Trauma: no lacerations or abrasions MDM MDM MDM Narrative Medical decision making narrative: 63-year-old male acute on chronic right shoulder pain. Suspect arthritis and degenerative joint disease. X-ray being obtained. Patient would like a injection in the shoulder will use Kenalog and lidocaine. Patient I discussed his x-ray results. Then a shoulder injection. We cleaned his right shoulder off with Betadine swabs and then alcohol swabs. Using a lateral approach I went underneath the acromion into the joint space. Injected a total of 10 cc of lidocaine and 40 of Kenalog. Patient tolerated well. Within minutes she started having significant relief of the shoulder discomfort has much better range of motion. He was warned to watch for any signs of infection. To be discharged home. Follow-up with orthopedics. History & Record Review Discussion w/independent historian: Patient Additional record(s) reviewed:: Prior inpatient record, Prior outpatient record, Prior ED visit and Prior labs Radiography Diagnostic Testing: Right shoulder x-ray 2 views shows degenerative arthritis of his shoulder. Joint space narrowing. No fracture or dislocation. Interpreted by myself. Procedures Other Procedures Procedure(s): Right shoulder joint injection. Cleaned with Betadine and alcohol. 10 cc of lidocaine and 40 mg of Kenalog were injected his right shoulder. Within minutes he was starting to get relief. With better range of motion. Discharge Plan Triage Chief Complaint: Upper Extremity Injury ED Provider: Orlin Fuentes Dx/Rx/DC Orders Clinical Impression: Acute shoulder pain, Osteoarthritis Instructions: ED Arthralgia, ED Osteoarthritis Prescriptions: No Action multivitamin [Multiple Vitamins] 1 EACH tablet 1 ea PO DAILY lisinopril 10 MG tablet 1 tab PO DAILY Patient Comments: cholecalciferol (vitamin D3) 5,000 UNIT capsule 5,000 unit PO DAILY antiarthritic combination no.2 [glucosamine-chondroitin] 900 MG tablet 900 mg PO DAILY losartan 50 mg tablet 50 mg PO DAILY tamsulosin 0.4 mg capsule 0.4 mg PO QHS Primary Care Provider: Greyson Nolan Referrals: Greyson Nolan MD [Primary Care Provider] - As Needed Timothy Hull MD [Non-Staff] - As Needed Activity Restrictions/Additional Instructions: Ice to shoulder. Motrin and Tylenol for pain and inflammation. Follow-up with your doctor if not improving. Return if fever or your shoulder gets red. These to be signs of infection. Follow-up with an orthopedic physician and/or a shoulder specialist, Dr. Orlin Hull [facility] shoulder specialist, to discuss with them further long-term treatment if this becomes a bigger problem he might need a shoulder replacement. Print Language: [place] Disposition Disposition: Home, Self Care
[2023-11-10] MEDS: Triamcinolone Acetonide 40 MG/ML Vial INTRAARTIC (22:49)
[2023-11-10] MEDS: Lidocaine 1% (20 ml mdv) 20 ML Vial 10 ML INFILT (22:49)
[2023-11-10 23:04] VITALS: BP 131/80; PULSE 81; RESP 18; TEMP 36.1; O2SAT 96
== END 2023-11-10 23:05 | disposition home or self-care (01) ==
PROVIDERS: Emergency Provider Emergency Medicine; PCP Family Medicine; Visit Provider Emergency Medicine
DX: M19.011 Primary osteoarthritis, right shoulder (principal); G89.29 Other chronic pain; Z96.653 Presence of artificial knee joint, bilateral
CPT/HCPCS: 20610; 73030; 99282

== ENCOUNTER → 2023-12-15 | Outpatient (CLI) | payer OTHER, SELFPAY ==
--- NOTE | 2023-12-15 08:54 | RAD_ITS ---
INDICATION: shoulder pain EXAMINATION/TECHNIQUE: X-RAY - LEFT XR Shoulder Min 2 Views COMPARISON: No previous relevant examinations for comparison. FINDINGS: SOFT TISSUES: No soft tissue swelling or gas. No radiopaque foreign body. BONES/JOINTS: 1. No acute fracture or subluxation.. Normal alignment. Preservation of the joint space.. No sclerotic or destructive changes observed. Moderate osteophyte formation is present particularly at the anatomic neck of the humerus. 2. There is normal glenohumeral motion. There is normal alignment of the acromioclavicular joint. 3. The clavicle, acromion, scapula and rib cage have normal appearance. RAD/Shoulder min 2 Views IMPRESSION: 1. No fracture malalignment or focal bony or joint space abnormality involving the shoulder.. Moderate degenerative change with osteophyte formation at the glenohumeral joint. Electronically Signed: Otilio Eli MD at 23:56 EDT ,
[2023-12-15 10:43] LABS: ALB/GLOB Ratio 0.9 RATIO (0.9-2.4); AST(SGOT) 21 U/L (15-37); Alanine Aminotransfer ALT/SGPT 32 U/L (16-61); Albumin, Serum 3.5 g/dL (3.2-5.0); Alkaline Phosphatase 103 U/L (45-117); Anion Gap 6 (5-15); BUN 12 mg/dL (7-18); Calcium,Total 9.3 mg/dL (8.5-10.1); Chloride 106 mmol/L (98-107); Cholesterol 155 mg/dL (200); Creatinine, Serum 0.92 mg/dL (0.70-1.30); EST Glomerular Filtration Rate 87 mL/min (>60); Est Glom Filt Rate - Afr Amer 105 mL/min (>60); Globulin 3.9 g/dL (2.2-4.2); Glucose 125 mg/dL (74-106); High Density Lipoprotein 58 mg/dL; PSA,Total - Annual Screen 2.62 ng/mL (0.00-4.00); Potassium 3.9 mmol/L (3.5-5.1); Protein, Total 7.4 g/dL (6.4-8.2); Sodium Level 139 mmol/L (136-145); Triglycerides 59 mg/dL; Very Low Density Lipoprotein 12 mg/dL (5-40)
== END | disposition home or self-care (01) ==
LOC: MTLAB 07:21
PROVIDERS: PCP Family Medicine; Referring Provider Family Medicine; Visit Provider Family Medicine
DX: Z12.5 Encounter for screening for malignant neoplasm of prostate (principal); I10 Essential (primary) hypertension; M25.512 Pain in left shoulder
CPT/HCPCS: 36415; 73030; 80053; 80061; 84153; G0103

== ENCOUNTER → 2024-12-17 | Outpatient (CLI) | payer MEDICARE, SELFPAY ==
[2024-12-17 11:06] LABS: AST(SGOT) 23 U/L (<=37); Alanine Aminotransfer ALT/SGPT 22 U/L (<=46); Albumin, Serum 4.2 g/dL (3.4-4.8); Alkaline Phosphatase 93 U/L (40-129); Anion Gap 11 (5-15); BUN 15 mg/dL (4-19); BUN/Creat Ratio 18.3 RATIO (10-20); Calcium,Total 9.5 mg/dL (7.6-11.0); Carbon Dioxide 24.8 mmol/L (21.0-32.0); Chloride 103 mmol/L (98-108); Globulin 3.1 g/dL (2.2-4.2); Glucose 119 mg/dL (70-99); PSA,Total - Annual Screen 2.22 ng/mL (0.02-4.00); Potassium 4.5 mmol/L (3.3-5.1)
[2024-12-17 11:35] LABS: Cholesterol 167 mg/dL (<=200); Low Density Lipoprotein Calc. 97 mg/dL; Triglycerides 66 mg/dL; Very Low Density Lipoprotein 13 mg/dL (5-40); cholesterol:hdl ratio screen 2.94
== END | disposition home or self-care (01) ==
PROVIDERS: PCP Family Medicine; Referring Provider Family Medicine; Visit Provider Family Medicine
DX: Z12.5 Encounter for screening for malignant neoplasm of prostate (principal); R73.01 Impaired fasting glucose
CPT/HCPCS: 36415; 80053; 80061; 84153; G0103

== ENCOUNTER → 2025-03-10 | Outpatient (CLI) | payer MEDICARE, SELFPAY ==
--- NOTE | 2025-03-10 10:26 | RAD_ITS ---
PROCEDURE: CERV SPINE 4 OR 5 VIEWS 03/10/2025 REASON FOR EXAM: NO PAIN. L ULNAR NERVE WEAKNESS. TECHNIQUE: [facility] Procedure: CERV SPINE 4 OR 5 VIEWS FINDINGS: No acute fracture or subluxation. Severe degenerative changes are noted within the cervical spine including disc space narrowing and prominent anterior and small posterior osteophytosis. Facet arthrosis are noted, more pronounced on the left. The prevertebral soft tissues appear unremarkable. The relationship of C1 on C2 is within normal limits. RAD/Cerv Spine 4 or 5 Views IMPRESSION: Severe cervical spondylosis. Reading Location: [id number]
== END | disposition home or self-care (01) ==
LOC: MTRAD 10:26
PROVIDERS: PCP Family Medicine; Referring Provider Family Medicine; Visit Provider Family Medicine
DX: S54.02XA Injury of ulnar nerve at forearm level, left arm, initial encounter (principal); X58.XXXA Exposure to other specified factors, initial encounter
CPT/HCPCS: 72050

== ENCOUNTER → 2025-04-18 | Outpatient (CLI) | payer MEDICARE, SELFPAY ==
--- NOTE | 2025-04-18 15:16 | MRI_ITS ---
PROCEDURE: SPINE CERVICAL (ROUTINE) 04/18/2025 REASON FOR EXAM: DDD AT C3-7 ON CERVICAL XRAY 03/10/25 TECHNIQUE: Procedure Code: MRISP Modality: MR Procedure: SPINE CERVICAL (ROUTINE) Multiplanar and multisequence images were obtained without IV contrast administration. COMPARISON: None available. FINDINGS: The visualized posterior fossa contents appear within normal limits. Straightening of the cervical spine. The atlantooccipital and atlantoaxial joints appear normally aligned. The cervical vertebral bodies are normal in height. Mild C7-T1 anterolisthesis. Well- circumscribed T1/T2 hyperintense lesion at the C5 vertebral body compatible with an osseous hemangioma. The cervical bone marrow signal is otherwise within normal limits. Focus of bone marrow edema at the anteroinferior aspect of T1 vertebral body, nonspecific but may be related to degenerative changes. Multilevel disc desiccation and intervertebral disc space height loss in the cervical spine. Multiple anterior osteophytes. There is no evidence of cervical spinal cord signal abnormality. C2-C3: No significant spinal canal stenosis. Bilateral facet arthrosis and uncovertebral spurring contribute to moderate left neural foraminal narrowing. The right neural foramen is overall intact. C3-C4: Posterior disc osteophyte complex, bilateral facet arthrosis, and uncovertebral spurring. Mild spinal canal stenosis. Severe bilateral neural foraminal narrowing. C4-C5: Posterior disc osteophyte complex, bilateral facet arthrosis, and uncovertebral spurring. Mild spinal canal stenosis. Moderate bilateral neural foraminal narrowing. C5-C6: Posterior disc osteophyte complex, bilateral facet arthrosis, and uncovertebral spurring. Moderate spinal canal stenosis with flattening of the ventral cord. Moderate right and severe left neural foraminal narrowing. C6-C7: Posterior disc osteophyte complex, bilateral facet arthrosis, and uncovertebral spurring. [id number] spinal canal stenosis with flattening of the ventral cord and near-complete effacement of CSF. Severe bilateral neural foraminal narrowing. C7-T1: Uncovering of the disc, bilateral facet arthrosis, and uncovertebral spurring. Mild spinal canal stenosis. Moderate bilateral neural foraminal narrowing. Mucosal thickening in the sphenoid sinuses. MRI/Spine Cervical (Routine) IMPRESSION: Multilevel cervical spondylosis most marked at C6-C7 where there is moderate-to -severe spinal canal stenosis predominantly secondary to posterior osteophyte complex and severe bilateral neural foraminal stenosis predominantly secondary to uncovertebral arthrosis. Reading Location: [id number]
== END | disposition home or self-care (01) ==
LOC: MRI 15:10
PROVIDERS: PCP Family Medicine; Referring Provider Family Medicine; Visit Provider Family Medicine
DX: M50.30 Other cervical disc degeneration, unspecified cervical region (principal)
CPT/HCPCS: 72141